=== PATIENT | male | born 1945 | race Caucasian/White ===

== ENCOUNTER 2016-11-16 09:40 | Day surgery (SDC) | payer MEDICARE, OTHER ==
[2016-11-16] MEDS ORDERED: LACTATED RINGERS 1,000 ML IV ONE (10:05)
[2016-11-16] MEDS ORDERED: MIDAZOLAM 2 MG/2 ML VIAL IVP ONE (12:00)
[2016-11-16] MEDS ORDERED: fentaNYL 100 MCG/2 ML VIAL IVP ONE (12:00)
[2016-11-16] MEDS ORDERED: GLUCAGON 1 MG/ML VIAL IM ONE (12:00)
[2016-11-16 12:30] VITALS: BP 115/62
== END 2016-11-16 09:41 | disposition home or self-care (01) ==
LOC: SDS 09:40
PROVIDERS: ATTEND Surgery
PROC: 0DJD8ZZ Inspection of Lower Intestinal Tract, Via Natural or Artificial Opening Endoscopic (ICD-10-PCS; principal; 2016-11-16 10:45)
DX: Z12.11 Encounter for screening for malignant neoplasm of colon (principal); K64.4 Residual hemorrhoidal skin tags; K57.30 Diverticulosis of large intestine without perforation or abscess without bleeding; G47.30 Sleep apnea, unspecified; I10 Essential (primary) hypertension; F41.0 Panic disorder [episodic paroxysmal anxiety]; Z86.73 Personal history of transient ischemic attack (TIA), and cerebral infarction without residual deficits; Z86.711 Personal history of pulmonary embolism; E78.5 Hyperlipidemia, unspecified
CPT/HCPCS: G0121; J7120

== ENCOUNTER 2017-08-15 08:25 | Outpatient (CLI) | payer MEDICARE, OTHER ==
[2017-08-15 11:14] LABS: BUN - BLOOD UREA NITROGEN 24 mg/dL (6-20); CALCIUM 8.7 mg/dL (8.5-10.3); CARBON DIOXIDE - CO2 27 mmol/L (21-32); CHLORIDE 105 mmol/L (101-111); CHOL/HDL RATIO 3.7 (<5.0); CHOLESTEROL 161 mg/dL; GFR - MDRD 73 (>89); GLUCOSE 108 mg/dL (70-100); HDL CHOLESTEROL 44 mg/dL; LDL CHOLESTEROL,CALCULATED 100 mg/dL; LDL/HDL RATIO 2.3 (<3.6); SODIUM 140 mmol/L (135-145); VLDL CHOLESTEROL 17 mg/dL
[2017-08-15 11:18] LABS: HB2 TOTAL 16.3 g/dL; HEMOGLOBIN A1C 0.65 g/dL; HEMOGLOBIN A1C % 5.8 % (4.6-6.2)
== END 2017-08-15 08:26 | disposition home or self-care (01) ==
LOC: LAB.F 08:25
PROVIDERS: ATTEND Internal Medicine
DX: Z00.00 Encounter for general adult medical examination without abnormal findings (principal); E78.5 Hyperlipidemia, unspecified
CPT/HCPCS: 36415; 80048; 80061; 83036; 83721

== ENCOUNTER 2018-03-07 08:46 | Outpatient (CLI) | payer MEDICARE, OTHER ==
--- NOTE | 2018-03-07 11:19 | XRAY Report ---
Reason: CHRONIC LEFT SHOULDER PAIN,NO TRAUMA, IRREGULAR HB Procedure Date: 03/07/2018 Accession Number: [id number] / [id number] Procedure: XR - Shoulder 3 View LT CPT Code: FULL RESULT: EXAM: LEFT SHOULDER RADIOGRAPHY EXAM DATE: 03/07/2018 09:00 AM. CLINICAL HISTORY: Chronic left shoulder pain, no trauma, irregular heartbeat. COMPARISON: None. TECHNIQUE: 3 views. FINDINGS: Bones: Normal. No fracture or bone lesion. Joints: The glenohumeral and acromioclavicular joints are normally located with mild degenerative changes of the AC joint. Soft tissues: The visualized hemithorax is unremarkable. No soft tissue swelling. IMPRESSION: No fracture or dislocation. RADIA
== END 2018-03-07 08:47 | disposition home or self-care (01) ==
LOC: DI 08:46
PROVIDERS: ATTEND Family Medicine
DX: M25.512 Pain in left shoulder (principal); I49.8 Other specified cardiac arrhythmias; R00.8 Other abnormalities of heart beat
CPT/HCPCS: 93005

== ENCOUNTER 2018-09-19 08:43 | Outpatient (CLI) | payer MEDICARE, OTHER ==
[2018-09-19 13:44] LABS: HEMOGLOBIN A1C 0.65 g/dL; HEMOGLOBIN A1C % 6.1 % (4.6-6.2)
[2018-09-19 13:49] LABS: BUN - BLOOD UREA NITROGEN 25 mg/dL (6-20); CALCIUM 8.7 mg/dL (8.5-10.3); CARBON DIOXIDE - CO2 24 mmol/L (21-32); CHLORIDE 105 mmol/L (101-111); CHOL/HDL RATIO 3.8 (<5.0); CHOLESTEROL 162 mg/dL; CREATININE 0.8 mg/dL (0.6-1.2); GFR - MDRD 94 (>89); GLUCOSE 111 mg/dL (70-100); HDL CHOLESTEROL 43 mg/dL; LDL CHOLESTEROL,CALCULATED 105 mg/dL; LDL/HDL RATIO 2.4 (<3.6); SODIUM 140 mmol/L (135-145); VLDL CHOLESTEROL 14 mg/dL
== END 2018-09-19 08:44 | disposition home or self-care (01) ==
LOC: LAB.F 08:43
PROVIDERS: ATTEND Internal Medicine
DX: Z00.00 Encounter for general adult medical examination without abnormal findings (principal); E78.49 Other hyperlipidemia
CPT/HCPCS: 36415; 80048; 80061; 83036; 83721

== ENCOUNTER 2019-05-09 08:13 | Emergency (ER) | payer MEDICARE, OTHER ==
--- NOTE | 2019-05-09 08:28 | ED Physician Documentation ---
PD HPI URI - Stated complaint Stated Complaint: FEVER,BODY ACHE,COUGH - Chief complaint Chief Complaint: General - History obtained from History obtained from: Patient - History of Present Illness Timing - onset: How many days ago (3) Timing duration: Days (3) Timing details: Abrupt onset, Still present Associated symptoms: Chills, Nasal congestion, Dry cough, Chest pain (with coughing, hurts in lower anterior ribs both sides.). No: NVD Contributing factors: Sick contact (was with group of people last week, some of whom were coughing, ill.). No: Travel, Immunocompromised Worsened by: Other (coughing) Similar symptoms before: No diagnosis (has had 3 URI type illnesses in the past 3 months. Does seem to get better between illnesses.) Recently seen: Not recently seen Review of Systems Constitutional: reports: Chills, Myalgias. denies: Fever Nose: reports: Congestion Throat: denies: Sore throat Cardiac: reports: Chest pain / pressure. denies: Palpitations, Pedal edema, Calf pain Respiratory: reports: Cough. denies: Dyspnea, Wheezing GI: reports: Diarrhea (loose). denies: Nausea, Vomiting Skin: denies: Rash, Lesions Neurologic: denies: Altered mental status, Headache PD PAST MEDICAL HISTORY - Past Medical History Past Medical History: Yes Cardiovascular: High cholesterol, Murmur, Other Respiratory: None Endocrine/Autoimmune: None GI: None : None HEENT: None Psych: Depression Musculoskeletal: None Derm: Rosacea - Past Surgical History Ortho: Other Cardiovascular: Cardiac catheterization - Present Medications Home Medications: Ambulatory Orders Medication Instructions Recorded Confirmed Lovastatin 1 tab PO DAILY 11/15/16 05/09/19 traZODone [Desyrel] 100 mg PO DAILY 11/15/16 05/09/19 Benzonatate [Tessalon Perle] 100 mg PO TID PRN #30 capsule 05/09/19 Doxycycline Hyclate 100 mg PO DAILY 05/09/19 05/09/19 Oseltamivir [Tamiflu] 75 mg PO BID #10 capsule 05/09/19 dexAMETHasone [Decadron] 4 mg PO DAILY #5 tablet 05/09/19 - Allergies Allergies/Adverse Reactions: Allergies Allergy/AdvReac Type Severity Reaction Status Date / Time No Known Drug Allergies Allergy Verified 11/15/16 13:53 - Social History Does the pt smoke?: No Smoking Status: Never smoker PD ED PE NORMAL - Vitals Vital signs reviewed: Yes - General General: Alert and oriented X 3, No acute distress, Well developed/nourished - HEENT HEENT: Ears normal, Moist mucous membranes, Pharynx benign - Neck Neck: Supple, no meningeal sign, No adenopathy - Cardiac Cardiac: RRR, No murmur - Respiratory Respiratory: Clear bilaterally - Abdomen Abdomen: Soft, Non tender - Derm Derm: Normal color, Warm and dry - Neuro Neuro: Alert and oriented X 3, No motor deficit, Normal speech Results - Vitals Vitals: Vital Signs - 24 hr 05/09/19 05/09/19 08:22 10:54 Temperature 37.3 C 36.6 C Heart Rate 82 76 Respiratory 16 19 Rate Blood Pressure 144/53 H 121/70 O2 Saturation 99 96 Oxygen O2 Source Room air - Labs Labs: Laboratory Tests 05/09/19 09:06 Influenza A (Rapid) POSITIVE H Influenza B (Rapid) Negative - Rads (name of study) chest xray Radiology: Prelim report reviewed (no infiltrates), See rad report PD MEDICAL DECISION MAKING - ED course Complexity details: considered differential (seems flu like. No pneumonia on CXR nor clinically. ), d/w patient Departure - Departure Disposition: 01 Home, Self Care Clinical Impression: Influenza A Condition: Stable Record reviewed to determine appropriate education?: Yes Instructions: ED Flu Follow-Up: James Dial MD [Primary Care Provider] - Prescriptions: Benzonatate [Tessalon Perle] 100 mg PO TID PRN #30 capsule PRN Reason: Cough dexAMETHasone [Decadron] 4 mg PO DAILY #5 tablet Oseltamivir [Tamiflu] 75 mg PO BID #10 capsule Comments: Stay well-hydrated. Tylenol every 4-6 hours if needed for pains or fevers. Add ibuprofen or naproxen if needed. Tessalon if needed for cough and Decadron steroid anti-inflammatory daily for 5 days to reduce inflammation. Tamiflu twice daily for 5 days to reduce the degree of illness from the flu. Recheck if worsening symptoms overall. Otherwise expect to have flulike symptoms for about 7 or 8 days. Discharge Date/Time: 05/09/19 11:15
[2019-05-09] MEDS ORDERED: DEXAMETHASONE 10 MG/ML VIAL PO STA (08:49)
[2019-05-09] MEDS ORDERED: CHERRY SYRUP 10 ML UDC PO ONE (08:49)
[2019-05-09] MEDS ORDERED: BENZONATATE 100 MG CAPSULE PO STA (08:49)
--- NOTE | 2019-05-09 10:18 | XRAY Report ---
Reason: chest pain/ cough Procedure Date: 05/09/2019 Accession Number: [id number] / [id number] Procedure: XR - Chest 2 View X-Ray CPT Code: 82014 Final Report FULL RESULT: EXAM: CHEST RADIOGRAPHY EXAM DATE: 05/09/2019 09:42 AM. CLINICAL HISTORY: Chest pain and cough. COMPARISON: XR CHEST PA AND LAT 01/26/2009 6:45 AM. TECHNIQUE: 2 views. FINDINGS: Lungs/Pleura: Left base consolidation seen previously has cleared. Only minimal atelectasis or scarring present about the lung bases bilaterally. No new consolidation, effusions or edema. Mediastinum: The cardiomediastinal silhouette is within normal limits. No enlargement or mass lesion evident. Other: None. IMPRESSION: 1. No acute consolidation. 2. Mild bibasilar atelectasis or scarring noted. RADIA
[2019-05-09 10:55] VITALS: BP 121/70
== END 2019-05-09 11:15 | disposition home or self-care (01) ==
LOC: ED 08:13
DX: J10.1 Influenza due to other identified influenza virus with other respiratory manifestations (principal)
CPT/HCPCS: 71046; 87275; 87276; 99284; A9270

== ENCOUNTER 2023-08-30 09:28 | Emergency (ER) | payer MEDICARE, OTHER ==
--- NOTE | 2023-08-30 10:38 | ED Physician Documentation ---
PD HPI URI - Stated complaint Stated Complaint: SHAKING/COLD - Chief complaint Chief Complaint: Fever - History obtained from History obtained from: Patient, Family (spouse) - History of Present Illness Timing - onset: How many hours ago (2-3), Today Timing duration: Hours Timing details: Abrupt onset Associated symptoms: Chills (with rigors/shaking chills for 1/2 hour or so this morning. Feeling aching and weak still but not feverish. Some sore throat.) Contributing factors: Travel (Travel to the [facility] for a wedding with return to the 2 days ago.) Similar symptoms before: Has not had sx before Recently seen: Not recently seen Review of Systems Constitutional: reports: Chills, Myalgias, Fatigue (just onset today) Nose: denies: Rhinorrhea / runny nose, Congestion Throat: reports: Sore throat Cardiac: denies: Chest pain / pressure Respiratory: denies: Cough GI: reports: Nausea, Vomiting (once this morning). denies: Abdominal Pain, Diarrhea (but did have a loose stool soon after arrival.) Skin: denies: Rash Musculoskeletal: denies: Neck pain Neurologic: denies: Altered mental status, Headache PD PAST MEDICAL HISTORY - Past Medical History Cardiovascular: High cholesterol, Murmur, Other Respiratory: None Endocrine/Autoimmune: None GI: None : None HEENT: None Psych: Depression Musculoskeletal: None Derm: Rosacea - Past Surgical History Past Surgical History: Yes Ortho: Other Cardiovascular: Cardiac catheterization - Present Medications Home Medications: Ambulatory Orders Medication Instructions Recorded Confirmed traZODone [Desyrel] 100 mg PO DAILY 11/15/16 08/30/23 ALPRAZolam [Alprazolam] 0.5 mg PO PRN PRN 08/30/23 08/30/23 Ondansetron Odt [Zofran] 4 mg TL Q6H PRN #10 tablet 08/30/23 Rosuvastatin Calcium 20 mg PO QPM 08/30/23 08/30/23 - Allergies Allergies/Adverse Reactions: Allergies Allergy/AdvReac Type Severity Reaction Status Date / Time No Known Drug Allergies Allergy Verified 08/30/23 09:56 - Social History Does the pt smoke?: No Smoking Status: Never smoker PD ED PE NORMAL - Vitals Vital signs reviewed: Yes - General General: Alert and oriented X 3, No acute distress, Well developed/nourished - Neck Neck: Supple, no meningeal sign, No adenopathy - Cardiac Cardiac: RRR, No murmur - Respiratory Respiratory: Clear bilaterally - Abdomen Abdomen: Soft, Non tender - Derm Derm: Normal color, Warm and dry, No rash - Extremities Extremities: No edema, No calf tenderness / cord - Neuro Neuro: Alert and oriented X 3, No motor deficit, Normal speech Results - Vitals Vitals: Vital Signs - 24 hr 08/30/23 08/30/23 08/30/23 09:49 11:52 12:43 Temperature 37.4 C 37.5 C Heart Rate 110 H 81 78 Respiratory 18 18 18 Rate Blood Pressure 142/65 H 119/59 L 109/54 L O2 Saturation 97 95 95 Oxygen O2 Source Room air - Labs Labs: Laboratory Tests 08/30/23 08/30/23 08/30/23 10:06 11:38 11:38 WBC 11.2 H RBC 4.67 L Hgb 14.1 Hct 44.4 MCV 95.1 H MCH 30.2 MCHC 31.8 L RDW 13.2 Plt Count 163 MPV 9.5 Neut # (Auto) 10.3 H Lymph # (Auto) 0.3 L Towner # (Auto) 0.5 Eos # (Auto) 0.0 Baso # (Auto) 0.0 Absolute Nucleated RBC 0.00 Nucleated RBC % 0.0 Sodium 139 Potassium 3.8 Chloride 107 Carbon Dioxide 26 Anion Gap 6.0 BUN 25 H Creatinine 0.9 Estimated GFR (MDRD) 81 L Glucose 102 Lactic Acid Calcium 9.1 Total Bilirubin 0.7 AST 18 ALT 13 Alkaline Phosphatase 53 Total Protein 6.3 L Albumin 3.9 Globulin 2.4 Albumin/Globulin Ratio 1.6 Lipase 13 Urine Color Urine Clarity Urine pH Ur Specific [place] Urine Protein Urine Glucose (UA) Urine Ketones Urine Occult Blood Urine Nitrite Urine Bilirubin Urine Urobilinogen Ur Leukocyte Esterase Ur Microscopic Review Urine Culture Comments Nasal Adenovirus (PCR) NOT DETECTED Nasal B. parapertussis DNA (PCR) NOT DETECTED Nasal Coronavir 229E PCR NOT DETECTED Nasal Coronavir HKU1 PCR NOT DETECTED Nasal Coronavir NL63 PCR NOT DETECTED Nasal Coronavir OC43 PCR NOT DETECTED Nasal Enterovir/Rhinovir PCR NOT DETECTED Nasal Influenza B PCR NOT DETECTED Nasal Influenza A PCR NOT DETECTED Nasal Parainfluen 1 PCR NOT DETECTED Nasal Parainfluen 2 PCR NOT DETECTED Nasal Parainfluen 3 PCR NOT DETECTED Nasal Parainfluen 4 PCR NOT DETECTED Nasal RSV (PCR) NOT DETECTED Nasal B.pertussis DNA PCR NOT DETECTED Nasal C.pneumoniae (PCR) NOT DETECTED Henry Human Metapneumo PCR NOT DETECTED Nasal M.pneumoniae (PCR) NOT DETECTED Nasal SARS-CoV-2 (PCR) NOT DETECTED 08/30/23 08/30/23 11:38 11:45 WBC RBC Hgb Hct MCV MCH MCHC RDW Plt Count MPV Neut # (Auto) Lymph # (Auto) Towner # (Auto) Eos # (Auto) Baso # (Auto) Absolute Nucleated RBC Nucleated RBC % Sodium Potassium Chloride Carbon Dioxide Anion Gap BUN Creatinine Estimated GFR (MDRD) Glucose Lactic Acid 1.4 Calcium Total Bilirubin AST ALT Alkaline Phosphatase Total Protein Albumin Globulin Albumin/Globulin Ratio Lipase Urine Color YELLOW Urine Clarity CLEAR Urine pH 6.0 Ur Specific [place] 1.015 Urine Protein NEGATIVE Urine Glucose (UA) NEGATIVE Urine Ketones NEGATIVE Urine Occult Blood NEGATIVE Urine Nitrite NEGATIVE Urine Bilirubin NEGATIVE Urine Urobilinogen 0.2 (NORMAL) Ur Leukocyte Esterase NEGATIVE Ur Microscopic Review NOT INDICATED Urine Culture Comments NOT INDICATED Nasal Adenovirus (PCR) Nasal B. parapertussis DNA (PCR) Nasal Coronavir 229E PCR Nasal Coronavir HKU1 PCR Nasal Coronavir NL63 PCR Nasal Coronavir OC43 PCR Nasal Enterovir/Rhinovir PCR Nasal Influenza B PCR Nasal Influenza A PCR Nasal Parainfluen 1 PCR Nasal Parainfluen 2 PCR Nasal Parainfluen 3 PCR Nasal Parainfluen 4 PCR Nasal RSV (PCR) Nasal B.pertussis DNA PCR Nasal C.pneumoniae (PCR) Henry Human Metapneumo PCR Nasal M.pneumoniae (PCR) Nasal SARS-CoV-2 (PCR) - Rads (name of study) chest xray Relevant Findings:: Prelim report reviewed (negative), EMP independent interpretation of test PD Medical Decision Making - ED course Complexity details: reviewed results (The patient describes likely viral illness with aches and fever feeling with rigors and some nausea with an episode of vomiting. Mild sore throat. His initial viral panel test here is negative though could be just early and could have false negatives. Otherwise look for other infections.), considered differential, d/w patient Reviewed Lab Results: The patient's white count is slightly elevated without any bandemia. Lactate is normal at 1.4. Viral panel testing is negative. We also look for other potential bacterial causes such as urinalysis and chest x-ray. These were both negative. Blood cultures are obtained because of the description with concern for acute bacteremia. However he does appear well now without any fevers nor any localizing symptoms. I still presume a viral type illness but gave good cautions to he and his regarding returning if worsening symptoms. Blood cultures were obtained and we will see if these show any positivity. The patient is a alert and conversant. He does not appear septic clinically. He does not screen for sepsis based on vital signs. He has elevated white count but no normal lactate. He does not appear meningitic nor confused. No obvious point source of infection with a normal chest x-ray and urine. Initial viral panel test is negative. The description of his symptoms seem very much rigors so concern for impending infection. Departure - Departure Disposition: 01 Home, Self Care Clinical Impression: Rigors, Elevated white blood cell count Condition: Stable Record reviewed to determine appropriate education?: Yes Follow-Up: James Dial MD [Primary Care Provider] - Prescriptions: Ondansetron Odt [Zofran] 4 mg TL Q6H PRN #10 tablet PRN Reason: Nausea / Vomiting Comments: Your flu test and viral panel is negative. It could be just early given your symptoms have just started. You could always retest for COVID at home in a day or 2 if you still have symptoms. Otherwise there is influenza and other viruses going around that may account for your initial symptoms. If you develop more sore throat cough nausea diarrhea etc. then we may make sense then that you are having an early viral flulike illness. I wrote a prescription for some nausea medicine in case that becomes more predominant. Otherwise we did test for chest x-ray and a urine test without any signs of infection in those areas. On your blood testing your white count was a mildly elevated which is fairly nonspecific to types of infection. The blood test called the lactic acid was negative/normal. Elevation of this would be indicative of sepsis so good that it is normal. We did do blood cultures as well and levels will result in a couple of days. Will call if there is any positive results. Meanwhile stay well-hydrated. Tylenol or ibuprofen if needed for fevers or pains. See how you do over the next couple of days. Forms: PCP List Discharge Date/Time: 08/30/23 12:43
[2023-08-30 11:15] LABS: B. PARAPERTUSSIS- RESP PCR PAN NOT DETECTED; B. PERTUSSIS- RESP PCR PANEL NOT DETECTED; C. PNEUMONIAE- RESP PCR PANEL NOT DETECTED; CORONAVIRUS 229E-RESP PCR NOT DETECTED; CORONAVIRUS HKU1-RESP PCR NOT DETECTED; CORONAVIRUS NL63-RESP PCR NOT DETECTED; CORONAVIRUS OC43-RESP PCR NOT DETECTED; HUMAN METAPNEUMOVIRUS NOT DETECTED; INFLUENZA A- RESP PCR PANEL NOT DETECTED; INFLUENZA B - RESP PCR PANEL NOT DETECTED; M. PNEUMONIAE- RESP PCR PANEL NOT DETECTED; PARAINFLUENZA VIRUS 1 NOT DETECTED; PARAINFLUENZA VIRUS 2 NOT DETECTED; PARAINFLUENZA VIRUS 3 NOT DETECTED; PARAINFLUENZA VIRUS 4 NOT DETECTED; RHINOVIRUS/ENTEROVIRUS NOT DETECTED; RSV- RESP PCR PANEL NOT DETECTED; SARS-CoV-2 -RESP PCR PANEL NOT DETECTED
--- NOTE | 2023-08-30 11:43 | XRAY Report ---
PROCEDURE: Chest 1V INDICATIONS: chest pain TECHNIQUE: One view of the chest was acquired. COMPARISON: 05/09/2019. FINDINGS: Surgical changes and devices: None. Lungs and pleura: No pleural effusions or pneumothorax. Lungs are clear. Mediastinum: Mediastinal contours appear normal. Heart size is normal. Bones and chest wall: No suspicious bony lesions. Overlying soft tissues appear unremarkable. IMPRESSION: No acute cardiopulmonary process. Reviewed by: Zac Andrews MD on 08/30/2023 11:42 AM PDT Approved by: Zac Andrews MD on 08/30/2023 11:42 AM PDT Station ID: [id number]
[2023-08-30 11:45] LABS: BASOPHILS % (AUTO) 0.3 %; EOSINOPHILS % (AUTO) 0.2 %; HCT - HEMATOCRIT 44.4 % (42.0-52.0); HGB - HEMOGLOBIN 14.1 g/dL (14.0-18.0); LYMPHOCYTES # (AUTO) 0.3 10^3/uL (1.5-3.5); LYMPHOCYTES % (AUTO) 2.9 %; MEAN CORPUSCULAR HEMOGLOBIN 30.2 pg (27.0-31.0); MEAN CORPUSCULAR HGB CONC 31.8 g/dL (32.0-36.0); MEAN CORPUSCULAR VOLUME 95.1 fL (80.0-94.0); MEAN PLATELET VOLUME 9.5 fL (7.4-11.4); MONOCYTES # (AUTO) 0.5 10^3/uL (0.0-1.0); MONOCYTES % (AUTO) 4.3 %; NEUTROPHILS # (AUTO) 10.3 10^3/uL (1.5-6.6); NEUTROPHILS % (AUTO) 91.9 %; PLT - PLATELET COUNT 163 10^3/uL (130-450); RED BLOOD COUNT 4.67 10^6/uL (4.70-6.10); RED CELL DISTRIBUTION WIDTH 13.2 % (12.0-15.0); WHITE BLOOD COUNT 11.2 x10^3/uL (4.8-10.8)
[2023-08-30 11:50] LABS: BILIRUBIN,URINE NEGATIVE (NEGATIVE); GLUCOSE, URINE (UA) NEGATIVE (NEGATIVE); KETONES,URINE (UA) NEGATIVE (NEGATIVE); LEUKOCYTE ESTERASE, URINE NEGATIVE (NEGATIVE); NITRITE,URINE NEGATIVE (NEGATIVE); OCCULT BLOOD,URINE NEGATIVE (NEGATIVE); PROTEIN,URINE NEGATIVE (NEGATIVE); UROBILINOGEN,URINE 0.2 (NORMAL) E.U./dL (NORMAL)
[2023-08-30 11:51] LABS: CLARITY,URINE CLEAR (CLEAR)
[2023-08-30 11:56] VITALS: O2SAT 95
[2023-08-30 12:00] LABS: ALBUMIN 3.9 g/dL (3.2-5.5); ALBUMIN/GLOBULIN RATIO 1.6 (1.0-2.2); BILIRUBIN,TOTAL 0.7 mg/dL (0.2-1.0); CALCIUM 9.1 mg/dL (8.5-10.3); CREATININE 0.9 mg/dL (0.6-1.3); POTASSIUM 3.8 mmol/L (3.5-4.5); TOTAL PROTEIN 6.3 g/dL (6.4-8.9)
[2023-08-30 12:47] VITALS: BP 109/54
== END 2023-08-30 12:43 | disposition home or self-care (01) ==
LOC: ED 09:28
DX: R68.89 Other general symptoms and signs (principal); D72.829 Elevated white blood cell count, unspecified
CPT/HCPCS: 36415; 80053; 81001; 81003; 83605; 83690; 85025; 87040; 87086; 87633; 99284

== ENCOUNTER 2023-09-20 07:52 | Outpatient (CLI) | payer MEDICARE, OTHER ==
--- NOTE | 2023-09-20 10:04 | CT Report ---
PROCEDURE: Chest WO INDICATIONS: LUNG NODULE TECHNIQUE: A CT scan of the chest was performed. Intravenous contrast media was not administered. Images were re corded and evaluated at appropriate window settings. Reformats: axial MIP of the chest, coronal and s agittal. For radiation dose reduction, the following was used: automated exposure control, adjustment of mA and/or kV according to patient size. COMPARISON: 08/30/2023 radiograph FINDINGS: Image quality: Diagnostic Lungs and pleura:Scattered scarring and atelectasis. No pleural effusions. No dense airspace disease. A 7 to 8mm right lower lobe nodule (4/73) is present. Another left lower lobe nodule measuring 5 mm i s seen (4/58). Other micronodules are present. Mediastinum, heart, and esophagus: No hiatal hernia. There are coronary calcifications. Atrial septal device. No pathologic lymph nodes by size criteria. Chest wall and thyroid: No suspicious thyroid nodules on CT. Chest wall is unremarkable Upper abdomen: Possible liver cysts. No gross abnormality on these limited noncontrast images. Possib le nonobstructing renal calculi partially seen. There are colonic diverticula. Bones: Possible vertebral hemangiomas. There are degenerative changes. IMPRESSION: Pulmonary nodules as described above, largest measuring 7 to 8 mm in the right lower lobe. Recommend follow-up in 3-6 months. Reviewed by: Chun Camara MD on 09/20/2023 10:03 AM PDT Approved by: Chun Camara MD on 09/20/2023 10:03 AM PDT Station ID: [id number]
== END 2023-09-20 07:53 | disposition home or self-care (01) ==
LOC: DI 07:52
PROVIDERS: ATTEND Registered Nurse
DX: R91.8 Other nonspecific abnormal finding of lung field (principal)

== ENCOUNTER 2023-10-04 13:04 | Outpatient (CLI) | payer MEDICARE, OTHER ==
[2023-10-04 19:51] LABS: BASOPHILS % (AUTO) 0.2 %; EOSINOPHILS # (AUTO) 0.1 10^3/uL (0.0-0.7); EOSINOPHILS % (AUTO) 0.9 %; HCT - HEMATOCRIT 46.7 % (42.0-52.0); HGB - HEMOGLOBIN 14.4 g/dL (14.0-18.0); LYMPHOCYTES # (AUTO) 1.5 10^3/uL (1.5-3.5); LYMPHOCYTES % (AUTO) 18.3 %; MEAN CORPUSCULAR HEMOGLOBIN 30.3 pg (27.0-31.0); MEAN CORPUSCULAR HGB CONC 30.8 g/dL (32.0-36.0); MEAN CORPUSCULAR VOLUME 98.3 fL (80.0-94.0); MEAN PLATELET VOLUME 10.2 fL (7.4-11.4); MONOCYTES # (AUTO) 0.8 10^3/uL (0.0-1.0); MONOCYTES % (AUTO) 9.2 %; NEUTROPHILS # (AUTO) 5.8 10^3/uL (1.5-6.6); NEUTROPHILS % (AUTO) 71.2 %; PLT - PLATELET COUNT 235 10^3/uL (130-450); RED BLOOD COUNT 4.75 10^6/uL (4.70-6.10); RED CELL DISTRIBUTION WIDTH 13.2 % (12.0-15.0); WHITE BLOOD COUNT 8.2 x10^3/uL (4.8-10.8)
[2023-10-04 20:10] LABS: ALBUMIN 4.1 g/dL (3.2-5.5); ALBUMIN/GLOBULIN RATIO 1.4 (1.0-2.2); ALKALINE PHOSPHATASE 67 IU/L (42-121); ALT ALANINE AMINOTRANSFERASE 14 IU/L (10-60); AST ASPARTATE AMINOTRANSFERASE 18 IU/L (10-42); BILIRUBIN,TOTAL 0.5 mg/dL (0.2-1.0); BUN - BLOOD UREA NITROGEN 20 mg/dL (6-20); CALCIUM 9.3 mg/dL (8.5-10.3); CARBON DIOXIDE - CO2 30 mmol/L (21-32); CHLORIDE 103 mmol/L (101-111); CREATININE 0.8 mg/dL (0.6-1.3); GFR - MDRD 93 (>89); GLUCOSE 88 mg/dL (74-104); POTASSIUM 4.1 mmol/L (3.5-4.5); SODIUM 141 mmol/L (135-145); TOTAL PROTEIN 7.1 g/dL (6.4-8.9)
[2023-10-04 20:18] LABS: LIPASE < 10 U/L (11-82)
--- NOTE | 2023-10-04 21:06 | XRAY Report ---
PROCEDURE: Abdomen 2 V INDICATIONS: ABDOMINAL PAIN, ACUTE TECHNIQUE: 2 views of the abdomen were acquired. COMPARISON: None. FINDINGS: Surgical changes and devices: Cholecystectomy clips. Bowel: No pneumoperitoneum. The bowel gas pattern is nonspecific. Prominent colonic stool. Soft tissues: No masses; visualized solid organ contours appear normal in size. No suspicious abdom inal calcifications. Bones: No suspicious bony abnormalities. IMPRESSION: Prominent colonic stool is an overall nonspecific gas pattern. Reviewed by: Jerica Hassan MD on 10/04/2023 9:04 PM PDT Approved by: Jerica Hassan MD on 10/04/2023 9:04 PM PDT Station ID: [id number]
== END 2023-10-04 13:05 | disposition home or self-care (01) ==
LOC: DI.S 13:04
PROVIDERS: ATTEND Registered Nurse
DX: R35.0 Frequency of micturition (principal); R19.4 Change in bowel habit; R10.9 Unspecified abdominal pain; R14.0 Abdominal distension (gaseous)
CPT/HCPCS: 36415; 80053; 83690; 85025

== ENCOUNTER 2023-12-23 08:47 | Outpatient (CLI) | payer MEDICARE, OTHER ==
--- NOTE | 2023-12-23 13:20 | CT Report ---
PROCEDURE: Chest WO INDICATIONS: LUNG NODULE TECHNIQUE: A CT scan of the chest was performed. Intravenous contrast media was not administered. Images were re corded and evaluated at appropriate window settings. Reformats: axial MIP of the chest, coronal and s agittal. For radiation dose reduction, the following was used: automated exposure control, adjustment of mA and/or kV according to patient size. COMPARISON: CT 09/20/2023 FINDINGS: Image quality: Diagnostic. Chest wall and lower neck: No thyroid nodule which requires sonographic follow up. No axillary or sup raclavicular adenopathy by size. Lungs and pleura: No consolidation. No pleural effusions. No pneumothorax. Mild interval growth of t he right lower lobe solid nodule measuring 8 mm, previously 7 mm (series 4, image 71). Stable 5 mm so lid nodule in the left lower lobe (series 4, image 61). Remaining pulmonary micronodules are unchange d from prior. Mediastinum: Heart size is enlarged. Before meals closure device present. No pericardial effusion. No large vessel abnormality. No mediastinal adenopathy by size criteria. Bones: No aggressive osseous abnormality. Vertebral hemangiomas of L1 and T9. Upper Abdomen: Moderate burden of nonobstructing bilateral nephrolithiasis, right greater than left. Hepatic cysts. Colonic diverticulosis without evidence of diverticulitis. IMPRESSION: Slight interval growth of the right lower lobe solid nodule measuring 8 mm, previously 7 mm. Consider PET/CT to exclude malignancy. Moderate burden of bilateral nonobstructing nephrolithiasis. Reviewed by: Mark Nolen MD on 12/23/2023 1:18 PM PDT Approved by: Mark Nolen MD on 12/23/2023 1:18 PM PDT Station ID: [id number]
== END 2023-12-23 08:48 | disposition home or self-care (01) ==
LOC: DI 08:47
PROVIDERS: ATTEND Registered Nurse
DX: R91.8 Other nonspecific abnormal finding of lung field (principal); N20.0 Calculus of kidney